=== PATIENT | male | born 1950 | race Caucasian/White ===

== ENCOUNTER → 2017-05-24 | Outpatient (CLI) | payer OTHER ==
[~2017-05-24] MED LIST: REGADENOSON 0.4 MG/5 ML SYRINGE ONE
== END | disposition home or self-care (01) ==
LOC: CFH 07:46
PROVIDERS: ATTEND Physician Assistant
DX: I25.10 Atherosclerotic heart disease of native coronary artery without angina pectoris (principal)
CPT/HCPCS: 78452; 93017; A9502; J2785

== ENCOUNTER → 2019-07-17 | Outpatient (CLI) | payer OTHER, MEDICARE ==
[~2019-07-17] MED LIST changes: +ATOR20TA37 PO; +LEVO50TA5 PO; +LISI-170 PO; +MELO7.5T31 PO; +METF-688 PO; +NIAC1000 PO; +OXYC5CAP2 PO; -REGADENOSON 0.4 MG/5 ML SYRINGE ONE; +TRAM50TA2 PO
[2019-07-17 09:53] LABS: BASOPHILS # (AUTO) 0.03 x10^3/uL (0-0.1); BASOPHILS % (AUTO) 0 % (0-1); EOSINOPHILS # (AUTO) 0.08 x10^3/uL (0-0.4); EOSINOPHILS % (AUTO) 1 % (1-7); LYMPHOCYTES # (AUTO) 1.76 x10^3/uL (1-3.4); LYMPHOCYTES % (AUTO) 22 % (22-44); MD NO; MEAN CORPUSCULAR HGB CONC 33.5 g/dL (33.2-36.2); MEAN CORPUSCULAR VOLUME 92.4 fL (81-97); MEAN PLATELET VOLUME 8.1 fL (7.4-10.4); MONOCYTES # (AUTO) 0.81 x10^3/uL (0.2-0.8); MONOCYTES % (AUTO) 10 % (2-9); NEUTROPHILS % (AUTO) 66 % (42-75); PLATELET COUNT 248 x10^3/uL (130-400); RED BLOOD COUNT 4.74 x10^6/uL (4.38-5.82); RED CELL DISTRIBUTION WIDTH 13.2 % (9.4-14.8)
[2019-07-17 09:59] LABS: INTERNATIONAL NORMALIZED RATIO 0.97 (0.93-1.1); PROTHROMBIN TIME 10.2 Seconds (9.6-11.5)
[2019-07-17 10:02] LABS: ALANINE AMINOTRANSFERASE 38 U/L (12-78); ANION GAP 5 mmol/L (5-15); CALCIUM 8.7 mg/dL (8.5-10.1); CHLORIDE 110 mmol/L (98-107); CREATININE 1.32 mg/dL (0.7-1.3)
[2019-07-17 10:04] LABS: ALKALINE PHOSPHATASE 82 U/L (45-117); BILIRUBIN,TOTAL 0.4 mg/dL (0.2-1.0); TOTAL PROTEIN 7.3 g/dL (6.4-8.2)
== END | disposition home or self-care (01) ==
LOC: STAR 08:29
PROVIDERS: ATTEND Orthopaedic Surgery
DX: Z01.818 Encounter for other preprocedural examination (principal); M16.12 Unilateral primary osteoarthritis, left hip
CPT/HCPCS: 36415; 80053; 83036; 85025; 85610; 85730; 87081; 93005

== ENCOUNTER 2019-07-22 08:33 | Inpatient (IN) | payer OTHER, MEDICARE ==
[~2019-07-22] VITALS: Ht 193 cm; Wt 112.0 kg
[~2019-07-22 08:33] MED LIST changes: +CEFAZOLIN 1,000 MG ONE; +FENTANYL PF 250 MCG/5ML ONE; +GLYCOPYRROLATE 0.2MG/1ML, 5ML ONE; -MELO7.5T31 PO; +MIDAZOLAM 1 MG/ML, 2ML ONE; +NEOSTIGMINE 1 MG/ML, 10ML ONE; -OXYC5CAP2 PO; +PROPOFOL 10 MG/ML, 20ML ONE; +ROCURONIUM 10MG/ML,5ML ONE; -TRAM50TA2 PO
[2019-07-22 09:07] VITALS: BP 163/98
[2019-07-22 09:10] VITALS: BP 163/98
[2019-07-22] MEDS ORDERED: LACTATED RINGERS 1,000 ML IV SCH (09:16)
[2019-07-22] MEDS ORDERED: GABAPENTIN 300 MG CAPSULE ONE (09:21)
[2019-07-22] MEDS ORDERED: ACETAMINOPHEN 500 MG TABLET ONE (09:21)
[2019-07-22] MEDS ORDERED: KETOROLAC 60 MG/2 ML ONE (09:25)
[2019-07-22] MEDS ORDERED: ROPIvacaine/PF 0.5%, 30 ML ONE (09:26)
[2019-07-22] MEDS ORDERED: TRANEXAMIC ACID 100 MG/ML, 10ML ONE ×2 (09:26)
[2019-07-22] MEDS ORDERED: VANCOMYCIN 1,000 MG ONE (09:26)
[2019-07-22] MEDS ORDERED: EPINEPHRINE 1 MG/ML, 1ML ONE (09:26)
[2019-07-22] MEDS ORDERED: GABAPENTIN 300 MG CAPSULE PO ONE (09:30)
[2019-07-22] MEDS ORDERED: ACETAMINOPHEN 500 MG TABLET PO ONE (10:00)
[2019-07-22] MEDS ORDERED: MEPERIDINE/PF 25MG/ML,1ML IVPush PRN (10:00)
[2019-07-22] MEDS ORDERED: LABETALOL 5MG/ML, 20ML IV PRN (10:00)
[2019-07-22] MEDS ORDERED: HALOPERIDOL 5 MG/ML IV PRN (10:00)
[2019-07-22] MEDS ORDERED: MORPHINE SULFATE 4 MG/ML, 1ML IVPush PRN (10:00)
[2019-07-22] MEDS ORDERED: OXYcodone 5 MG/5 ML ORAL.SOL UDC PO PRN (10:00)
[2019-07-22] MEDS ORDERED: PROMETHAZINE 25 MG/ML, 1ML IV PRN (10:00)
[2019-07-22] MEDS: NS + 20MEQ KCL 1,000 ML IV SCH ×2 (10:22→14:16)
[2019-07-22] MEDS ORDERED: SCOPOLAMINE PATCH, 1.5MG PATCH.TD72 TD ONE (10:30)
[2019-07-22] MEDS ORDERED: ZOLPIDEM 5MG TABLET PO PRN (10:30)
[2019-07-22] MEDS ORDERED: MAGNESIUM HYDROXIDE 8%, 30ML UDC PO PRN (10:30)
[2019-07-22] MEDS ORDERED: BISACODYL 10 MG SUPP PR PRN (10:30)
[2019-07-22] MEDS ORDERED: HYDROcodone/APAP 5/325 TABLET PO PRN (10:30)
[2019-07-22] MEDS ORDERED: DIPHENHYDRAMINE 25 MG CAPSULE PO PRN (10:30)
[2019-07-22] MEDS ORDERED: ONDANSETRON 2MG/ML, 2ML IV PRN (10:30)
[2019-07-22] MEDS ORDERED: SENNA/DOCUSATE TABLET PO PRN (10:30)
[2019-07-22] MEDS ORDERED: ONDANSETRON 4 MG TABLET PO PRN (10:30)
[2019-07-22] MEDS ORDERED: FENTANYL PF 250 MCG/5ML ONE (10:51)
[2019-07-22] MEDS ORDERED: OXYcodone 5 MG/5 ML ORAL.SOL UDC ONE (11:41)
[2019-07-22] MEDS ORDERED: hydrALAzine 20 MG/ML, 1ML ONE (11:42)
[2019-07-22] MEDS ORDERED: FENTANYL PF 100 MCG/2ML ONE (11:42)
[2019-07-22] MEDS: FENTANYL PF 100 MCG/2ML IV PRN ×2 (11:46→11:54)
[2019-07-22] MEDS ORDERED: HYDROmorphone 1 MG/ML, 1ML INJ ONE (12:04)
[2019-07-22] MEDS: HYDROmorphone 1 MG/ML, 1ML INJ IVPush PRN ×2 (12:08→12:20)
[2019-07-22] MEDS ORDERED: hydrALAzine 20 MG/ML, 1ML IV PRN (12:30)
[2019-07-22 14:17] VITALS: BP 118/79
[2019-07-22] MEDS: CEFAZOLIN PMX 2GM/50ML 50 ML IVPB SCH (17:54)
[2019-07-22] MEDS: ASPIRIN 81 MG TABLET EC PO SCH (17:54)
[2019-07-22] MEDS: OXYcodone IR 5MG TABLET PO PRN ×2 (17:54→22:02)
[2019-07-22 19:57] VITALS: BP 134/83
[2019-07-22] MEDS ORDERED: ATORVASTATIN 20 MG TABLET PO SCH (21:00)
[2019-07-22] MEDS: DOCUSATE 100 MG CAPSULE PO SCH (22:01)
[2019-07-23 00:14] VITALS: BP 153/73
[2019-07-23] MEDS: ACETAMINOPHEN 650 MG/20.3 ML UDC PO PRN ×3 (01:53→11:36)
[2019-07-23] MEDS: CEFAZOLIN PMX 2GM/50ML 50 ML IVPB SCH (01:54)
[2019-07-23] MEDS: OXYcodone IR 5MG TABLET PO PRN ×3 (01:54→11:37)
[2019-07-23 04:45] VITALS: BP 135/78
[2019-07-23] MEDS ORDERED: DEXAMETHASONE 4 MG/ML, 1ML IVPush SCH (06:00)
[2019-07-23] MEDS: ASPIRIN 81 MG TABLET EC PO SCH (06:25)
[2019-07-23] MEDS ORDERED: TAMSULOSIN 0.4 MG CAP.ER.24H PO ONE (06:30)
[2019-07-23 06:53] VITALS: BP 113/71
[2019-07-23] MEDS ORDERED: LEVOTHYROXINE 50 MCG TABLET PO SCH (09:00)
[2019-07-23] MEDS ORDERED: LISINOPRIL 20 MG TABLET PO SCH (09:00)
[2019-07-23] MEDS ORDERED: metFORMIN XR 500 MG TAB.ER.24H PO SCH (09:00)
[2019-07-23] MEDS: DOCUSATE 100 MG CAPSULE PO SCH (09:18)
[2019-07-23] MEDS ORDERED: OXYC5CAP2 PO (11:01)
[2019-07-23] MEDS ORDERED: MELO7.5T31 PO (11:02)
[2019-07-23] MEDS ORDERED: TRAM50TA2 PO (11:02)
[2019-07-23] MEDS: NS + 20MEQ KCL 1,000 ML IV SCH (11:22)
== END 2019-07-23 13:00 | disposition home or self-care (01) | DRG 470 ==
LOC: ORIP 08:34 → 4NE 13:22 → DCLOUNGE 07-23 12:45
PROVIDERS: ADMIT Orthopaedic Surgery; ATTEND Orthopaedic Surgery
PROC: 0SRB06A Replacement of Left Hip Joint with Oxidized Zirconium on Polyethylene Synthetic Substitute, Uncemented, Open Approach (ICD-10-PCS; principal; 2019-07-22 10:45)
DX: M16.12 Unilateral primary osteoarthritis, left hip (principal); I25.10 Atherosclerotic heart disease of native coronary artery without angina pectoris; I11.9 Hypertensive heart disease without heart failure; M06.9 Rheumatoid arthritis, unspecified; G47.30 Sleep apnea, unspecified; E78.5 Hyperlipidemia, unspecified; E11.9 Type 2 diabetes mellitus without complications; E03.9 Hypothyroidism, unspecified; Z88.2 Allergy status to sulfonamides; Z90.89 Acquired absence of other organs; Z82.61 Family history of arthritis; Z82.3 Family history of stroke; Z82.49 Family history of ischemic heart disease and other diseases of the circulatory system; Z79.899 Other long term (current) drug therapy
CPT/HCPCS: 36415; 72170; 76000; 85014; 85018; C1713; G0378; J0171; J0690; J1100; J1170; J1885; J2250; J2405; J2704; J2710; J2795; J3010; J3370; J3480; C1776; J7120